=== PATIENT | female | born 1965 | race Caucasian/White ===

== ENCOUNTER → 2020-05-27 | Outpatient (CLI) | payer BC ==
[~2020-05-27] MED LIST: ARIP30TA4 PO; CARB200T PO; CLON-77 PO; DEXT10CA9 PO; HYDR-2761 PO; LEXAPRO10 MG PO; LISI-130 PO; METF500T16 PO
--- NOTE | 2020-05-27 15:36 | KCIC ---
LUMBAR SPINE WO CONTRAST Date: 05/27/2020 12:30 PM Indication: Reason: LUMBAR SPONDYLOSIS / Spl. Instructions: / History: Chronic LBP, leg paralysis at times, previous surgery Comparison: None. Technique: Multi-planar multi-weighted magnetic resonance imaging of the lumbar spine was performed without intravenous contrast using the standard lumbar spine protocol. FINDINGS: The lumbar spine is normally aligned. No acute fracture. Moderate multilevel degenerative disc desiccation and disc height loss. Multilevel fatty degenerative endplate changes. The conus terminates at a normal level. No abnormal signal is seen within the visualized distal spinal cord. No clumping of intrathecal nerve roots. No soft tissue abnormality in the visualized abdomen or pelvis. T12-L1: Disc bulge. Mild facet arthropathy. No significant spinal stenosis or neural foraminal narrowing. L1-L2: Disc bulge. Mild facet arthropathy. No significant spinal stenosis. Mild left neural foraminal narrowing. L2-L3: Disc bulge. Moderate facet arthropathy. Moderate spinal stenosis and right lateral recess narrowing. Mild bilateral neural foraminal narrowing. L3-L4: Disc bulge. Moderate facet arthropathy. Mild spinal stenosis. Mild bilateral neural foraminal narrowing. L4-L5: Question prior postsurgical changes. Disc bulge. Severe facet arthropathy. Ligamentum flavum thickening. Mild spinal stenosis. Mild to moderate bilateral neural foraminal narrowing. L5-S1: Disc bulge. Moderate facet arthropathy. Mild spinal stenosis. Mild right and mild to moderate left neural foraminal narrowing. IMPRESSION: Moderate lumbar spondylosis, detailed level by level above. Electronically signed by: Reji Rodriguez MD (05/27/2020 3:33 PM) [id number]
== END ==
LOC: KCIC MRI 12:25
PROVIDERS: ATTEND Nurse Practitioner Adult Health
DX: M47.817 Spondylosis without myelopathy or radiculopathy, lumbosacral region (principal); M47.814 Spondylosis without myelopathy or radiculopathy, thoracic region; M48.07 Spinal stenosis, lumbosacral region
CPT/HCPCS: 72148